=== PATIENT | female | born 1935 | race Caucasian/White ===

== ENCOUNTER 2021-04-13 19:31 | Emergency (ER) | payer MEDICARE, OTHER, SELFPAY ==
[2021-04-13 20:45] VITALS: BP 137/68; PULSE 72; RESP 18; TEMP 36.6; O2SAT 96; BMI 34.1
--- NOTE | 2021-04-13 21:14 | HMH.EDUTC ---
[facility] [place] Disposition Clinical Impression: UTI (urinary tract infection) Qualifiers: Urinary tract infection type: site unspecified Hematuria presence: with hematuria Qualified Code(s): N39.0 - Urinary tract infection, site not specified Disposition: Home, Self-Care Condition on Discharge: Good Instructions: Urinary Tract Infection, DI for Urinary Tract Infection (UTI), Cefdinir Additional Instructions: *Increase fluids. Water not Soda or Tea *Start antibiotic immediately and be sure to take as ordered for the FULL length of time although you should start to see improvement over the next 48 hours *Be SURE to follow up anytime for new or worsening symptoms with your family doctor. AND in 48 hours for urine culture results with your family doctor, if you do not have a doctor then you may call back to the [facility] for urine culture results and further treatment. We do recommend that you choose and establish care with a Primary Care Physician. AND follow up with them in 10-14 days to repeat UA to ensure infection is resolved and blood no longer present *Be sure to let your PCP know that we sent urine cultures from the [facility] so they can follow up to ensure that you area the on the correct antibiotic Call your doctor office and make appointment for 48 hours (2 days from today) to follow up and get the results of your urine culture and further treatment Prescriptions: Cefdinir [Omnicef 300mg Capsule] 300 mg PO DAILY 7 Days #7 cap Transmission Status: Received by [facility] Referrals: Sabi Murillo [Primary Care Provider] - As needed Time of Disposition: 21:34 Medical Decision Making - Bradford Inquiry Pt receiving controlled substance: No Bradford was queried for this patient: No Vital Signs: 04/13/21 20:45 04/13/21 21:41 Temperature 97.8 F 97.8 F Temperature Source Oral Pulse Rate 72 Pulse Rate [Right Brachial] 72 Respiratory Rate 18 18 Blood Pressure 137/68 Blood Pressure [Right Arm] 137/68 Blood Pressure Mean [Right Arm] 91 Blood Pressure Source [Right Arm] Automatic Cuff Blood Pressure Position [Right Arm] Sitting 02 Sat by Pulse Oximetry 96 Oxygen Delivery Method Room Air - Lab Data Lab results reviewed: Yes: I reviewed the patient's lab results. Lab Results 04/13/21 21:08: Urine Color Yellow, Urine Appearance Cloudy, Urine pH 6.5, Ur Specific [place] 1.020, Urine Protein 1+, Urine Glucose (UA) Negative, Urine Ketones Negative, Urine Blood 3+, Urine Nitrate Negative, Urine Bilirubin Negative, Urine Urobilinogen 0.2, Ur Leukocyte Esterase 2+ A Orders (Tests/Meds): ED MEDICATIONS Discontinued Medications Generic Name Dose Route Start Last Admin Trade Name Mitchell PRN Reason Stop Dose Admin Ceftriaxone Sodium 1 gm 04/13/21 21:28 04/13/21 21:30 Ceftriaxone 1gm Vial IM 04/13/21 21:29 1 gm ONCE ONE Administration Lidocaine HCl 0 ml 04/13/21 21:28 04/13/21 21:30 Lidocaine 1% 5ml Pf Vial IM 04/13/21 21:29 2.1 ml ONCE ONE Administration ORDERS Category Date Time Status Urine Culture Stat Micro 04/13/21 20:33 Received Medical Decision Narrative: Medication discussed with pharmacy due to kidney failure and issues [facility] [place] HPI - General Stated complaint: possible UTI Time Seen by Provider: 04/13/21 21:14 Mode of Arrival: Ambulatory Source of Information: Patient Limitations: No Limitations Description of Symptoms (Recalled from Triage Doc. by RN): C/O POSSIBLE UTI HEENT Symptoms (Recalled from RN notes): No Resp Symptoms (Recalled from RN notes): No Skin Symptoms (Recalled from RN notes): No MS Symptoms (Recalled from RN notes): No Functional Status (Recalled from RN notes): WNL - History of Present Illness Provider Complaint: Patient state that she gets kidney infections often and noticed that she was having the feeling of urgency and frequency and she knew she probably had another infection so she came in to get tested - Related Data Previous Rx's Medicati
[2021-04-13 21:41] VITALS: BP 137/68; PULSE 72; RESP 18; TEMP 36.6; O2SAT 96
[2021-04-13 21:58] LABS: Apearance,Urine Cloudy (Clear); Bilirubin,Urine Negative (Negative); Blood, Urine 3+ (Negative); Color,Urine Yellow (Yellow); Glucose,Urine (UA) Negative (Negative); Ketones,Urine Negative (Negative); PH,Urine 6.5 (5.0-8.5); Protein,Urine 1+ (Negative); Urobilinogen,Urine 0.2 EU/dl (0.2)
[2021-04-13 21:59] LABS: UTC Leukocyte Esterase,Urine 2+ (Negative); UTC Nitrate,Urine Negative (Negative)
== END 2021-04-13 21:50 | disposition home or self-care (01) ==
PROVIDERS: Emergency Provider Nurse Practitioner; PCP Internal Medicine
DX: R07.89 Other chest pain (principal); N30.00 Acute cystitis without hematuria
CPT/HCPCS: G0463; 81003; 87086; 87088; 87186; 96372; 99202

== ENCOUNTER 2021-04-25 18:22 | Emergency (ER) | payer MEDICARE, OTHER, SELFPAY ==
[2021-04-25 19:06] VITALS: BP 144/85; PULSE 75; RESP 18; TEMP 36.9; O2SAT 95; BMI 34.1
--- NOTE | 2021-04-25 19:21 | XR_ITS ---
PROCEDURE INFORMATION: Exam: XR Chest Exam date and time: 04/25/2021 7:21 PM Age: 86 years old Clinical indication: Cough; Prior surgery; Surgery date: 6+ months; Surgery type: Pacemaker; Additional info: Cough, congestion TECHNIQUE: Imaging protocol: XR of the chest. Views: 2 views. Total images: 3 COMPARISON: No relevant prior studies available. FINDINGS: Tubes, catheters and devices: Question mildly increased density in the left basilar region with somewhat indistinct left cardiac margin, although the pacemaker unit partially obscures the region on the frontal view and this is not confirmed on the lateral view. It is difficult to exclude airspace disease in the lingula, which could be due to atelectasis or pneumonia. Lungs: Mild generalized hyperexpansion/hyperlucency suspicious for COPD. Mild central vascular congestion. Pleural spaces: Blunted left lateral costophrenic angle suggesting minimal effusion or pleural scarring. No pneumothorax. Heart/Mediastinum: Mild cardiomegaly. Prior median sternotomy.Cardiac pacemaker without gross hardware complication. No tracheal/mediastinal shift. Bones/joints: No acute osseous abnormalities are identified. IMPRESSION: 1. Question mild atelectasis or pneumonia in the lingula. 2. Blunted left lateral costophrenic angle which may relate to pleural scarring or minimal basilar effusion. 3. Evidence of COPD. 4. Mild cardiomegaly and mild central vascular congestion, with prior median sternotomy and cardiac pacemaker.
--- NOTE | 2021-04-25 19:21 | HMH.EDUTC ---
[facility] [place] Disposition Clinical Impression: Pneumonia Qualifiers: Pneumonia type: due to unspecified organism Laterality: left Lung location: lower lobe of lung Qualified Code(s): J18.9 - Pneumonia, unspecified organism Disposition: Still a Patient Condition on Discharge: Fair Referrals: Sabi Murillo [Primary Care Provider] - Time of Disposition: 20:18 Medical Decision Making - Medical Records Medical records reviewed: No: I reviewed the patient's medical records. - Bradford Inquiry Pt receiving controlled substance: No Vital Signs: 04/25/21 19:06 Temperature 98.5 F Temperature Source Oral Pulse Rate [Left] 75 Respiratory Rate 18 Blood Pressure [Right Arm] 144/85 H Blood Pressure Mean [Right Arm] 104 02 Sat by Pulse Oximetry 95 Orders (Tests/Meds): ORDERS Category Date Time Status Covid-19 Nasal PCR ([facility]) Routine Lab 04/25/21 19:10 Received Rapid PCR Covid and Flu A/B Stat Lab 04/25/21 20:16 Ordered Medical Decision Narrative: She was transferred to the er due to pneumonia on cxr and her extensive cardiac history. [facility] [place] HPI - General Stated complaint: cough,congestion,drainage Time Seen by Provider: 04/25/21 19:40 Mode of Arrival: Ambulatory Source of Information: Patient Limitations: No Limitations Description of Symptoms (Recalled from Triage Doc. by RN): pt c/o a cough and lethargy. x1 week. HEENT Symptoms (Recalled from RN notes): No Resp Symptoms (Recalled from RN notes): Yes (cough) Skin Symptoms (Recalled from RN notes): No MS Symptoms (Recalled from RN notes): No Functional Status (Recalled from RN notes): lethargy - History of Present Illness Provider Complaint: She states that for the past 2 to 3 weeks she has had a cough, chest congestion and she has felt bad. She has been vaccinated against covid-19. - Related Data Previous Rx's Medication Instructions Recorded Cefdinir [Omnicef 300mg Capsule] 300 mg PO DAILY 7 Days #7 cap 04/13/21 Allergies Allergy/AdvReac Type Severity Reaction Status Date / Time sulfamethoxazole Allergy Verified 04/13/21 21:07 [From Bactrim] trimethoprim [From Bactrim] Allergy Verified 04/13/21 21:07 - Worker's Comp Is this a Worker's Comp case?: No [facility] History - Hepatitis A Screen Drug use history?: No High risk sexual behaviors?: No History of sexually transmitted infection?: No Currently employed?: No Childcare worker?: No Do you have indoor plumbing?: Yes Do you have electricity?: Yes Attestation statement:: This patient has been screened for Hepatitis A risk factors. I have reviewed the patient's past medical history: Yes ROS Obtained: Yes All systems reviewed & no additional complaints - Constitutional Constitutional: Reports chills, Reports fever(s), Reports poor appetite, Reports malaise - Eyes Eyes: Denies eye discharge - ENT Ears, Nose, Mouth, and Throat: Denies dizziness, Denies otalgia, Denies sore throat, Denies vertigo/dizziness - Cardiovascular Cardiovascular: Reports chest pain - Respiratory Respiratory: Reports chest congestion, Reports cough, Denies dyspnea, Denies stridor, Denies wheezing Physical Exam - General General appearance: alert, in no apparent distress - Head Head exam: atraumatic, normocephalic, normal inspection - Eye Eye exam: Present: normal appearance, PERRL, EOMI - ENT ENT exam: Present: normal exam, normal oropharynx, mucous membranes moist, TM's normal bilaterally, normal external ear exam - Neck Neck exam: Present: normal inspection, full ROM, trachea midline. Absent: meningismus, lymphadenopathy - Chest Chest inspection: Present: normal inspection, symmetric chest wall rise. Absent: tenderness - Respiratory Respiratory exam: Present: normal lung sounds bilaterally. Absent: respiratory distress - Cardiovascular Cardiovascular exam: Present: regular rate, normal rhythm. Absent: JVD - Abdominal Exam Abdominal exam: Present: soft, normal bowel
[2021-04-25 20:33] LABS: Coronavirus 19, PCR Not Detected (NotDetected); Influenza A, PCR Not Detected (NotDetected); Influenza B, PCR Not Detected (NotDetected)
[2021-04-25 21:00] VITALS: BP 142/74; PULSE 72; RESP 16; TEMP 36.3; O2SAT 96; BMI 33.9
[2021-04-25 21:25] LABS: Basophils # 0.1 K/mm3 (0-0.2); Basophils % 0.8 % (0.1-2.0); Eosinophils # 0.3 K/mm3 (0.0-0.4); Hematocrit 42.2 % (37.0-47.0); Lymphocytes # 1.7 K/mm3 (0.7-4.5); Lymphocytes % 27.6 % (10-50); Mean Corpuscular HGB Conc 30.8 g/dL (31.8-35.4); Mean Corpuscular Hemoglobin 28.8 pg (27.0-31.2); Mean Corpuscular Volume 93.4 fl (81-99); Mean Platelet Volume 10.5 fl (7.4-10.4); Monocytes # 0.4 K/mm3 (0.1-1.0); Monocytes % 6.4 % (1.7-9.3); Neutrophils # 3.9 K/mm3 (1.8-7.8); Neutrophils % 61.2 % (37.0-80.0); Platelet Count 114 K/mm3 (142-424); Red Blood Count 4.51 M/mm3 (4.20-5.40); Red Cell Distribution Width 21.9 % (11.5-17.5); White Blood Count 6.3 K/mm3 (4.8-10.8)
[2021-04-25 21:37] LABS: Alanine Aminotransferase 13 U/L (12-78); Albumin Level 3.5 g/dl (3.5-5.0); Alkaline Phosphatase 207 U/L (38-126); Anion Gap 15.4 mEq/L (5-15); Aspartate Amino Transferase 25 U/L (14-36); Bilirubin,Total 1.3 mg/dl (0.2-1.3); Blood Urea Nitrogen 73 mg/dl (7-17); Calcium 8.9 mg/dl (8.4-10.2); Carbon Dioxide 28 mmol/L (22.0-30.0); Chloride 103 mmol/L (98-107); Creatinine Clearance Estimated 27 mL/min (50-200); Estimated Glomerular Filt Rate 21 ml/min (>60); GFR (African American) 26 ML/MIN (>60); Globulin 3.4 g/dL (1.3-3.2); Glucose 101 mg/dl (74-100); Potassium 4.4 mmoL/L (3.5-5.1); Sodium 142 mmol/L (136-145); Total Protein,Serum 6.9 g/dl (6.3-8.2)
[2021-04-25 21:49] LABS: NT Pro Brain Natriuretic Pep. 4450 pg/mL (0-450); Troponin I 0.02 ng/ml (0.00-0.034)
--- NOTE | 2021-04-25 22:59 | HMH.EDSOB ---
ED Disposition Clinical Impression: Chronic renal insufficiency, stage IV (severe) Pneumonia Qualifiers: Pneumonia type: due to unspecified organism Laterality: left Lung location: lower lobe of lung Qualified Code(s): J18.9 - Pneumonia, unspecified organism CHF (congestive heart failure) Qualifiers: Heart failure type: unspecified Heart failure chronicity: unspecified Qualified Code(s): I50.9 - Heart failure, unspecified Disposition: Home, Self-Care Condition on Discharge: Good Instructions: DI for Heart Failure Additional Instructions: call card in am for close follow up Referrals: Sabi Murillo [Primary Care Provider] - - Critical Care Critical Care Time: No Attestation: On 04/25/21, the high probability of a clinically significant, sudden or life threatening deterioration of the following system(s) required my full and direct attention, intervention and personal management. The time I documented below is in addition to time spent performing reported procedures but includes the following listed in this critical care notation. Medical Decision Making - Medical Records Medical records reviewed: Yes: I reviewed the patient's medical records. - Bradford Inquiry Pt receiving controlled substance: No Vital Signs: 04/25/21 19:06 04/25/21 21:00 Temperature 98.5 F 97.4 F L Temperature Source Oral Oral Pulse Rate [Left] 75 72 Respiratory Rate 18 16 Blood Pressure [Right Arm] 144/85 H 142/74 H Blood Pressure Mean [Right Arm] 104 96 02 Sat by Pulse Oximetry 95 96 - Lab Data Lab results reviewed: Yes: I reviewed the patient's lab results. Lab Results 04/25/21 19:10: SARS-CoV-2 (PCR) Not detected, Influenza A Untype (PCR) Not detected, Influenza Type B (PCR) Not detected 04/25/21 21:20: WBC 6.3, RBC 4.51, Hgb 13.0, Hct 42.2, MCV 93.4, MCH 28.8, MCHC 30.8 L, RDW 21.9 H, Plt Count 114 L, MPV 10.5 H, Neut % (Auto) 61.2, Lymph % (Auto) 27.6, [place] % (Auto) 6.4, Eos % (Auto) 4.0, Baso % (Auto) 0.8, Neut # (Auto) 3.9, Lymph # (Auto) 1.7, [place] # (Auto) 0.4, Eos # (Auto) 0.3, Baso # (Auto) 0.1 04/25/21 21:20: Sodium 142, Potassium 4.4, Chloride 103, Carbon Dioxide 28, Anion Gap 15.4 H, BUN 73 H, Creatinine 2.20 H, Estimated Creat Clear 27, Estimated GFR 21 L, Est GFR ( Amer) 26 L, Glucose 101 H, Calcium 8.9, Total Bilirubin 1.3, AST 25, ALT 13, Alkaline Phosphatase 207 H, Troponin I 0.02, NT-Pro-B Natriuret Pep 4450 H, Total Protein 6.9, Albumin 3.5, Globulin 3.4 H, Albumin/Globulin Ratio 1.0 L Result diagrams: 04/25/21 21:20 04/25/21 21:20 Orders (Tests/Meds): ORDERS Category Date Time Status Troponin I Q3H Lab 04/26/21 00:15 Ordered Troponin I Q3H Lab 04/26/21 03:15 Ordered - Radiology Data #1 Image(s): Chest Image Reviewed: Yes I have reviewed radiologist's interpretation Preliminary Findings: Abnormal (see report ) Medical Decision Narrative: think it is related to possible chf with elevated bnp/abn cxr/ lower ext edema - has known renal dis - no pablo Resp/SOB HPI - General Chief Complaint: Upper Respiratory Infection Stated Complaint: cough,congestion,drainage Time Seen by Provider: 04/25/21 19:40 Mode of Arrival: Wheelchair Source of Information: Patient Limitations: No Limitations Description of Symptoms (Recalled from ER Triage Doc. by RN): pt c/o cough x 1.5 weeks - History of Present Illness pt with cough over the last 2 weeks w/o fever or prod sputum - more daytime and not at night - ok to lie down - but legs more swollen - no chest pain - has known renal dis - no chest pain MD Complaint: shortness of breath, cough Onset (ago): day(s) Severity: moderate Associated symptoms: denies other symptoms Treatment prior to arrival: none - Related Data Home oxygen amount: none Home Medications Medication Instructions Recorded Confirmed Apixaban [Eliquis 2.5mg tab] 2.5 mg PO DAILY 04/25/21 04/25/21 Atorvastatin Calcium [Lipitor 20mg 20 mg PO HS 04/25/21
[2021-04-25 23:17] VITALS: BP 142/76; PULSE 73; RESP 16; TEMP 37.2; O2SAT 98
== END 2021-04-25 23:27 | disposition home or self-care (01) ==
LOC: UTC 18:28 → ER 20:15
PROVIDERS: Nurse Practitioner Family; Emergency Provider Emergency Medicine; PCP Internal Medicine
DX: J18.9 Pneumonia, unspecified organism (principal); Z20.822 Contact with and (suspected) exposure to COVID-19; I50.9 Heart failure, unspecified; N18.9 Chronic kidney disease, unspecified; Z79.899 Other long term (current) drug therapy
CPT/HCPCS: 71046; 80053; 83880; 84484; 85025; 99282; C9803; U0003; U0005

== ENCOUNTER → 2021-12-01 15:12 | Outpatient (CLI) | payer MEDICARE, OTHER, SELFPAY ==
[2021-12-01 17:06] LABS: Basophils # 0.2 K/mm3 (0-0.2); Basophils % 3.6 % (0.1-2.0); Eosinophils # 0.1 K/mm3 (0.0-0.4); Eosinophils % 1.7 % (0.1-12.0); Hematocrit 40.9 % (37.0-47.0); Hemoglobin 13.1 g/dL (12.2-16.2); Lymphocytes # 1.3 K/mm3 (0.7-4.5); Lymphocytes % 22.2 % (10-50); Mean Corpuscular HGB Conc 32.2 g/dL (31.8-35.4); Mean Corpuscular Hemoglobin 29.2 pg (27.0-31.2); Mean Corpuscular Volume 90.6 fl (81-99); Mean Platelet Volume 11.4 fl (7.4-10.4); Monocytes # 0.5 K/mm3 (0.1-1.0); Neutrophils # 3.7 K/mm3 (1.8-7.8); Neutrophils % 64.4 % (37.0-80.0); Platelet Count 106 K/mm3 (142-424); Red Blood Count 4.51 M/mm3 (4.20-5.40); Red Cell Distribution Width 16.6 % (11.5-17.5); White Blood Count 5.7 K/mm3 (4.8-10.8)
[2021-12-01 17:31] LABS: NT Pro Brain Natriuretic Pep. 3770 pg/mL (0-450)
== END ==
PROVIDERS: Visit Provider Internal Medicine Cardiovascular Disease
DX: R06.02 Shortness of breath (principal); N18.9 Chronic kidney disease, unspecified; E11.9 Type 2 diabetes mellitus without complications
CPT/HCPCS: 36415; 83880; 85025

== ENCOUNTER 2022-01-13 14:33 | Emergency (ER) | payer MEDICARE, OTHER, SELFPAY ==
[2022-01-13 14:55] VITALS: BP 101/62; PULSE 74; RESP 19; TEMP 36.3; O2SAT 98; BMI 30.4
[2022-01-13 15:10] LABS: Apearance,Urine Cloudy (Clear); Bilirubin,Urine Negative (Negative); Blood, Urine 2+ (Negative); Color,Urine Dark Yellow (Yellow); Glucose,Urine (UA) Negative (Negative); Ketones,Urine Negative (Negative); PH,Urine 5.5 (5.0-8.5); Protein,Urine Trace (Negative); UTC Leukocyte Esterase,Urine 3+ (Negative); UTC Nitrate,Urine Negative (Negative); Urobilinogen,Urine 0.2 EU/dl (0.2)
--- NOTE | 2022-01-13 15:17 | HMH.EDUTC ---
[facility] [place] Disposition Clinical Impression: Episode of confusion Disposition: Left Against Medical Advice Condition on Discharge: Good Additional Instructions: Go straight to [facility] ED as you advised you was going to upon leaving the [facility] Referrals: Sabi Murillo [Primary Care Provider] - Medical Decision Making - Bradford Inquiry Pt receiving controlled substance: No Bradford was queried for this patient: No Vital Signs: 01/13/22 14:55 01/13/22 15:20 Temperature 97.4 F L 97.4 F L Temperature Source Oral Pulse Rate 74 Pulse Rate [Left Brachial] 74 Respiratory Rate 19 19 Blood Pressure 101/62 L Blood Pressure [Left Arm] 101/62 L Blood Pressure Mean [Left Arm] 75 Blood Pressure Source [Left Arm] Automatic Cuff Blood Pressure Position [Left Arm] Sitting 02 Sat by Pulse Oximetry 98 Oxygen Delivery Method Room Air - Lab Data Lab results reviewed: Yes: I reviewed the patient's lab results. Lab Results 01/13/22 14:54: Urine Color Dark yellow, Urine Appearance Cloudy, Urine pH 5.5, Ur Specific [place] 1.010, Urine Protein Trace, Urine Glucose (UA) Negative, Urine Ketones Negative, Urine Blood 2+, Urine Nitrate Negative, Urine Bilirubin Negative, Urine Urobilinogen 0.2, Ur Leukocyte Esterase 3+ A Orders (Tests/Meds): ORDERS Category Date Time Status Urine Culture Stat Micro 01/13/22 14:48 Received Medical Decision Narrative: Discussed with Daughter and patient and recommended transfer to the ED upon calling ED for transfer Daughter states that she did not want patient to go to the ED patient and her wanted to go on to [facility] where all patients Physicians are Patient and daughter educated on risk even and still declined transfer to ED at [facility] and would go straight to for further treatment and evaluation upon leaving the [facility] Patient signed form declining transfer [facility] HPI - General Stated complaint: possible uti Time Seen by Provider: 01/13/22 15:17 Mode of Arrival: Ambulatory Source of Information: Patient, Relative Limitations: No Limitations Description of Symptoms (Recalled from Triage Doc. by RN): FAMILY REPORTS THAT PATIENT HAS BEEN HAVING CONFUSION X 3 DAYS. SHE REPORTS A HISTORY OF FREQUENT UTIs, BUT DENIES ANY UTI SYMPTOMS. SHE DID VOMIT ONCE IN THE ROOM HEENT Symptoms (Recalled from RN notes): No Resp Symptoms (Recalled from RN notes): No Skin Symptoms (Recalled from RN notes): No MS Symptoms (Recalled from RN notes): No Functional Status (Recalled from RN notes): WNL - History of Present Illness Provider Complaint: Daughter states that patient has been having episodes of confusion for about a week that is worse over he last 3-4 days State that was worried that she may have a UTI that may be causing it States that she has not complained of UTI symptoms and never had any confusion with UTI in the past Patient states upon entering [facility] she feels sick and vomits x 1 - Related Data Home Medications Medication Instructions Recorded Confirmed Apixaban [Eliquis 2.5mg tab] 2.5 mg PO DAILY 04/25/21 04/25/21 Atorvastatin Calcium [Lipitor 20mg 20 mg PO HS 04/25/21 04/25/21 Tablet*] Eszopiclone 2 mg PO DAILY 04/25/21 04/25/21 Indapamide [Lozol 2.5mg tablet] 2.5 mg PO DAILY 04/25/21 04/25/21 Isosorbide Mononitrate [Imdur 30mg 30 mg PO DAILY 04/25/21 04/25/21 ER tablet] Levothyroxine Sodium 112 mcg PO DAILY 04/25/21 04/25/21 [Levothyroxine 112mcg (0.112mg) Tab] Spironolactone [Spironolactone 25 mg PO DAILY 04/25/21 04/25/21 25mg Tablet] carvediloL [Carvedilol 6.25mg Tab] 6.25 mg PO DAILY 04/25/21 04/25/21 Allergies Allergy/AdvReac Type Severity Reaction Status Date / Time sulfamethoxazole Allergy Verified 04/13/21 21:07 [From Bactrim] trimethoprim [From Bactrim] Allergy Verified 04/13/21 21:07 - Worker's Comp Is this a Worker's Comp case?: No H History - Hepatitis A Screen Attestation statement:: This patient has been
[2022-01-13 15:20] VITALS: BP 101/62; PULSE 74; RESP 19; TEMP 36.3; O2SAT 98
--- NOTE | 2022-01-13 15:23 | PC.NURSE ---
Melo ELLIS APRN SPOKE WITH FAMILY CONCERNING TRANSFERRING PATIENT TO ER FOR FURTHER EVALUATION. FAMILY DECLINED, STATING THEY WOULD RATHER TAKE HER TO [facility] ER FOR PATIENT'S PCP IS LOCATED.
== END 2022-01-13 15:30 | disposition left against medical advice (07) ==
PROVIDERS: Emergency Provider Nurse Practitioner; PCP Internal Medicine
DX: R41.0 Disorientation, unspecified (principal); B96.5 Pseudomonas (aeruginosa) (mallei) (pseudomallei) as the cause of diseases classified elsewhere; R11.10 Vomiting, unspecified; E11.9 Type 2 diabetes mellitus without complications; Z79.01 Long term (current) use of anticoagulants; Z79.899 Other long term (current) drug therapy; Z88.2 Allergy status to sulfonamides; Z88.8 Allergy status to other drugs, medicaments and biological substances; Z85.9 Personal history of malignant neoplasm, unspecified
CPT/HCPCS: 81003; 87086; 87088; 87186; 99213; G0463

== ENCOUNTER → 2022-02-15 13:59 | Outpatient (CLI) | payer MEDICARE, OTHER, SELFPAY ==
[2022-02-15 14:09] LABS: Microscopic, Urine URINE MICROSCOPIC (MICROSCOPIC)
[2022-02-15 14:33] LABS: Appearance,Urine CLEAR (Clear); Bilirubin,Urine Negative (Negative); Blood, Urine 1+ (Negative); Color,Urine YELLOW (Yellow); Glucose,Urine (UA) Negative (Negative); Ketones,Urine Negative (Negative); Leukocyte Esterase,Urine 2+ (Negative); Nitrate,Urine Negative (Negative); Protein,Urine Negative (Negative); Urobilinogen,Urine 0.2 EU/dl (0.2)
[2022-02-15 14:41] LABS: Basophils # 0.1 K/mm3 (0-0.2); Basophils % 0.9 % (0.1-2.0); Eosinophils # 0.1 K/mm3 (0.0-0.4); Eosinophils % 1.7 % (0.1-12.0); Hematocrit 40.2 % (37.0-47.0); Hemoglobin 12.8 g/dL (12.2-16.2); Lymphocytes # 1.5 K/mm3 (0.7-4.5); Lymphocytes % 20.5 % (10-50); Mean Corpuscular HGB Conc 31.7 g/dL (31.8-35.4); Mean Corpuscular Hemoglobin 29.4 pg (27.0-31.2); Mean Corpuscular Volume 92.7 fl (81-99); Mean Platelet Volume 10.3 fl (7.4-10.4); Monocytes # 0.4 K/mm3 (0.1-1.0); Monocytes % 6.1 % (1.7-9.3); Neutrophils # 5.1 K/mm3 (1.8-7.8); Neutrophils % 70.9 % (37.0-80.0); Platelet Count 157 K/mm3 (142-424); Red Blood Count 4.34 M/mm3 (4.20-5.40); Red Cell Distribution Width 16.9 % (11.5-17.5); White Blood Count 7.2 K/mm3 (4.8-10.8)
[2022-02-15 15:32] LABS: Bacteria,Urine 1+ /lpf; WBC,Urine TNTC #/hpf (0-3)
[2022-02-15 16:51] LABS: Albumin Level 3.5 g/dl (3.5-5.0); Anion Gap 18.6 mEq/L (5-15); Calcium 9.2 mg/dl (8.4-10.2); Carbon Dioxide 27 mmol/L (22.0-30.0); Chloride 98 mmol/L (98-107); Estimated Glomerular Filt Rate 9 ml/min (>60); GFR (African American) 11 ML/MIN (>60); Glucose 91 mg/dl (74-100); Phosphorous 5.4 mg/dl (2.5-4.5); Potassium 3.6 mmoL/L (3.5-5.1); Sodium 140 mmol/L (136-145)
[2022-02-16 09:06] LABS: Blood Urea Nitrogen 148 mg/dl (7-17)
== END ==
PROVIDERS: PCP Internal Medicine; Visit Provider Internal Medicine Nephrology
DX: I12.9 Hypertensive chronic kidney disease with stage 1 through stage 4 chronic kidney disease, or unspecified chronic kidney disease (principal); N18.4 Chronic kidney disease, stage 4 (severe); D63.1 Anemia in chronic kidney disease; E11.29 Type 2 diabetes mellitus with other diabetic kidney complication; R82.90 Unspecified abnormal findings in urine
CPT/HCPCS: 36415; 80069; 81001; 85025; 87086; 87088; 87186